=== PATIENT | female | born 1950 | race African-American/Black ===

== ENCOUNTER 2017-03-20 07:37 | Inpatient (IN) | payer OTHER ==
[~2017-03-20] VITALS: Ht 167.6 cm; Wt 117.0 kg
[2017-03-20] VITALS (7 sets, daily range): BP systolic 113–164; BP diastolic 57–138
--- NOTE | 2017-03-20 07:52 | Emergency Room Report ---
History of Present Illness General Chief Complaint: Pain Source: Patient Present Illness HPI 67 yo F. with pmhx of HTN, p/w left arm pain for many months. Patient is alert awake oriented x3 however slightly poor historian. Patient states that she gets left arm pain every single day, starts at any time. Localized to left arm and sometimes right arm, no radiation to back, sharp in nature, gradual in onset , lasts several hours, patient states that she woke up with left arm pain this morning, which has been constant. 10 out of 10 pain. Denies trauma. Occurs at rest. Denies SOB. Denies palpitations, diaphoresis, n/v. Denies fever, chills, cough, abd pain. Patient has never had a stress test. Patient has never had a cardiac catheterization. Denies smoking, no family history of cardiac disease at a young age. Denies any alcohol use or any drug use. Allergies: Coded Allergies: No Known Allergies (Unverified , 03/20/17) Patient History Past Medical History: see triage record Past Surgical History: none Pertinent Family History: none Reviewed Nursing Documentation: PMH: Agreed, PSxH: Agreed Nursing Documentation-PMH Past Medical History: No History, Except For Hx Hypertension: Yes History Of Psychiatric Problem: Yes - ANXIETY Review of Systems All Other Systems: negative except mentioned in HPI Physical Exam Vital Signs Date Time Temp Pulse Resp B/P (MAP) Pulse Ox O2 Delivery O2 Flow Rate FiO2 03/20/17 07:29 98.1 135 18 136/110 98 Room Air Sp02 EP Interpretation: reviewed, normal General Appearance: alert, GCS 15, non-toxic, other - Middle aged female, appears diaphoretic however does not appear to be in pain, conversing appropriately at bedside Head: normocephalic, atraumatic Eyes: bilateral eye normal inspection, bilateral eye PERRL, bilateral eye EOMI ENT: normal ENT inspection, normal pharynx, normal voice, moist mucus membranes Neck: normal inspection, full range of motion, supple Respiratory: normal inspection, lungs clear, normal breath sounds, no respiratory distress, no retraction, no wheezing, speaking full sentences, chest symmetrical Cardiovascular #1: normal inspection, no edema, normal capillary refill, tachycardia Cardiovascular #2: 2+ radial (R), 2+ radial (L) Gastrointestinal: normal inspection, non tender, soft, non-distended, no guarding Musculoskeletal: normal inspection, back normal, normal range of motion, non- tender, other - FROM of all extremities including upper ext, no warmth/erythema of joints, no gross bony deformities. nontender Neurologic: normal inspection, alert, oriented x3, responsive, motor strength/ tone normal, sensory intact, normal gait, speech normal Psychiatric: normal inspection, other - Slightly poor historian Skin: normal inspection, normal color, no rash, warm/dry, well hydrated, normal turgor Medical Decision Making Diagnostic Impression: Primary Impression: Acute coronary syndrome Additional Impression: Left arm pain ER Course 67 yo F. with pmhx of hypertension p/w left arm pain/chest pain DDX: ACS vs. CHF vs. pneumonia vs. gastritis/GERD vs. pneumothorax Plan: IV access, obtain labs including troponin, EKG, CXR ASA Anticipate admission ER course: sinus tach, afebrile rectally Patient was treated with ASA. Labs- Troponin neg pt agitated/screaming in pain, ativan/morphine given remained on monitor tachycardic however bp normal. Disposition: Patient requires admission for chest pain to tele floor. Patient requires admission for further workup, serial troponin, and possible stress test/cath inpatient. Patient was signed out to Dr Mock, who has accepted patient for admission. Please note that this Emergency Department Report was dictated using [employer] application developer technology software, occasionally this can lead to erroneous entry secondary to interpretation by the dictation equipment. Laboratory Tests Test 03/20/17 08:19 White Blood Count 9.5 K/UL (4.8-10.8) Red Blood Count 5.05 M/UL (4.20-5.40) Hemoglobin 15.0 G/DL (12.0-16.0) Hematocrit 46.8 % (37.0-47.0) Mean Corpuscular Volume 93 FL (80-99) Mean Corpuscular Hemoglobin 29.6 PG (27.0-31.0) Mean Corpuscular Hemoglobin Concent 32.0 G/DL (32.0-36.0) Red Cell Distribution Width 15.9 % (11.6-14.8) H Platelet Count 393 K/UL (150-450) Mean Platelet Volume 5.9 FL (6.5-10.1) L Neutrophils (%) (Auto) 67.2 % (45.0-75.0) Lymphocytes (%) (Auto) 22.0 % (20.0-45.0) Monocytes (%) (Auto) 5.2 % (1.0-10.0) Eosinophils (%) (Auto) 4.9 % (0.0-3.0) H Basophils (%) (Auto) 0.7 % (0.0-2.0) Sodium Level 142 mEQ/L (135-145) Potassium Level 3.9 mEQ/L (3.4-4.9) Chloride Level 102 mEQ/L (98-107) Carbon Dioxide Level 26 mEQ/L (20-30) Anion Gap 14 (5-15) Blood Urea Nitrogen 18 mg/dL (7-23) Creatinine 1.0 mg/dL (0.5-0.9) H Estimate Glomerular Filtration Rate > 60 mL/min (>60) Glucose Level 155 mg/dL (74-106) H Calcium Level 9.0 mg/dL (8.6-10.2) Total Bilirubin 0.3 mg/dL (0.0-1.2) Aspartate Amino Transferase (AST) 16 U/L (5-40) Alanine Aminotransferase (ALT) 11 U/L (3-33) Alkaline Phosphatase 125 U/L (35-104) H Total Creatine Kinase 68 U/L (26-140) Creatine Kinase MB 1.8 ng/mL (< 3.8) Creatine Kinase MB Relative Index 2.6 Troponin I < 0.30 ng/mL (<=0.30) Pro-B-Type Natriuretic Peptide 85 pg/mL (0-125) Total Protein 7.9 g/dL (6.6-8.7) Albumin 3.4 g/dL (3.5-5.2) L Globulin 4.5 g/dL Albumin/Globulin Ratio 0.7 (1.0-2.7) L Thyroid Stimulating Hormone (TSH) 2.640 uIU/mL (0.300-4.500) Serum Alcohol Pending EKG Diagnostic Results Rate: tachycardiac Rhythm: NSR ST Segments: other - Q waves III and aVF ASA given to the pt in ED: Yes Rhythm Strip Diag. Results EP Interpretation: yes Rate: 130 Rhythm: NSR, no PVC's, no ectopy Chest X-Ray Diagnostic Results Chest X-Ray Diagnostic Results : Chest X-Ray Ordered: Yes # of Views/Limited/Complete: 1 View Indication: Chest Pain EP Interpretation: Yes Interpretation: other - cardiomegaly, cannot fully eval L lung base 2/2 to poor insp effort Impression: Other - cardiomegaly Electronically Signed by: Electronically signed by Adelina Adan MD Last Vital Signs Date Time Temp Pulse Resp B/P (MAP) Pulse Ox O2 Delivery O2 Flow Rate FiO2 03/20/17 07:29 98.1 135 18 136/110 98 Room Air Disposition: ADMITTED INPATIENT Condition: Serious Adelina Adan M.D. Mar 20, 2017 07:52
[2017-03-20] MEDS ORDERED: LORazepam Inj 2mg/ml 1ml IV ONE (08:30)
[2017-03-20 08:39] LABS: BASOPHILS % (AUTO) 0.7 % (0.0-2.0); EOSINOPHILS % (AUTO) 4.9 % (0.0-3.0); MEAN CORPUSCULAR HEMOGLOBIN 29.6 PG (27.0-31.0); MEAN CORPUSCULAR VOLUME 93 FL (80-99); MEAN PLATELET VOLUME 5.9 FL (6.5-10.1); MONOCYTES % (AUTO) 5.2 % (1.0-10.0); NEUTROPHILS % (AUTO) 67.2 % (45.0-75.0); PLATELET COUNT 393 K/UL (150-450); RED BLOOD COUNT 5.05 M/UL (4.20-5.40); RED CELL DISTRIBUTION WIDTH 15.9 % (11.6-14.8); WHITE BLOOD COUNT 9.5 K/UL (4.8-10.8)
[2017-03-20] MEDS ORDERED: Morphine Sulfate 4mg/ml Inj IVP ONE (08:45)
[2017-03-20 08:52] LABS: ALANINE AMINOTRANSFERASE 11 U/L (3-33); ALBUMIN/GLOBULIN RATIO 0.7 (1.0-2.7); ANION GAP 14 (5-15); ASPARTATE AMINO TRANSFERASE 16 U/L (5-40); CARBON DIOXIDE 26 mEQ/L (20-30); CHLORIDE 102 mEQ/L (98-107); GLOMERULAR FILTRATION RATE > 60 mL/min (>60); HEMOLYSIS 2; POTASSIUM 3.9 mEQ/L (3.4-4.9); SODIUM 142 mEQ/L (135-145); TOTAL PROTEIN 7.9 g/dL (6.6-8.7); TROPONIN I < 0.30 ng/mL (<=0.30)
[2017-03-20] MEDS ORDERED: LEXAPRO10 MG ORAL (09:00)
[2017-03-20] MEDS ORDERED: NAPROXEN500 M2 ORAL (09:00)
[2017-03-20] MEDS ORDERED: TRAZODONE HCL50 MG ORAL (09:00)
[2017-03-20] MEDS ORDERED: DIOVAN160 MG ORAL (09:00)
[2017-03-20] MEDS ORDERED: HYDROCHLOROTHIA50 MG ORAL (09:00)
[2017-03-20 09:04] LABS: CKMB 1.8 ng/mL (< 3.8)
[2017-03-20] MEDS ORDERED: Miralax 17gm pkt ORAL PRN (11:30)
[2017-03-20] MEDS ORDERED: Enalaprilat 2.5mg/2ml Inj IV PRN (11:30)
[2017-03-20] MEDS ORDERED: Ketorolac 30mg Inj IV PRN (11:30)
[2017-03-20] MEDS ORDERED: DuoNeb 0.5-3(2.5)mg/3ml neb HHN PRN (11:30)
[2017-03-20] MEDS ORDERED: Nitroglycerin Subl 0.4mg tab (Bottle Of 25) SL PRN (11:30)
[2017-03-20] MEDS ORDERED: Diltiazem 25mg/5ml IV PRN (11:30)
--- NOTE | 2017-03-20 11:32 | Diagnostic Imaging Report ---
Indication: PAIN Technique: One view of the chest Comparison: none Findings: Lungs and pleural spaces are clear. The heart is enlarged. Aorta is tortuous and ectatic Impression: No acute process This agrees with the preliminary interpretation provided by the emergency room physician
[2017-03-20] MEDS: Morphine Sulfate 2mg/ml Inj IVP PRN ×2 (11:54→17:42)
--- NOTE | 2017-03-20 13:05 | History and Physical ---
History of Present Illness General Date patient seen: Mar 20, 2017 Reason for Hospitalization: Pain Present Illness HPI 67 year old female with pmhx of HTN presented to [facility] [place] with CC of left arm pain , sharp in nature, gradual in onset, lasts several hours, patient states that she woke up with left arm pain this morning, which has been constant. 10 out of 10 pain. Pt is a poor historian with morbid obesity and lack of activity and very high risk for CAD. therefore she is admitted to rule out ACS. Allergies: Coded Allergies: No Known Allergies (Unverified , 03/20/17) Medication History Scheduled Escitalopram Oxalate* (Lexapro*), 5 MG ORAL DAILY, (Reported) Hydrochlorothiazide* (Hydrochlorothiazide*), 50 MG ORAL DAILY, (Reported) Valsartan (Diovan), 160 MG ORAL DAILY, (Reported) Scheduled PRN Naproxen* (Naproxen*), 500 MG ORAL TWICE A DAY PRN for For Pain, (Reported) Trazodone Hcl* (Desyrel*), 50 MG ORAL BEDTIME PRN for Insomnia, (Reported) Patient History Healthcare decision maker Resuscitation status Advanced Directive on File Past Medical/Surgical History Past Medical/Surgical History: (1) HTN (hypertension) Review of Systems Constitutional: Reports: no symptoms Eye: Reports: no symptoms ENT: Reports: no symptoms Physical Exam General Appearance: WD/WN Lines, tubes and drains: peripheral, central line HEENT: normocephalic, anicteric Neck: non-tender, normal alignment Respiratory/Chest: chest wall non-tender Breasts: no masses Cardiovascular/Chest: normal peripheral pulses Abdomen: normal bowel sounds, non tender Genitourinary/Rectal: normal genital exam Last 24 Hour Vital Signs Date Time Temp Pulse Resp B/P (MAP) Pulse Ox O2 Delivery O2 Flow Rate FiO2 03/20/17 12:48 139 114/74 03/20/17 12:00 98.4 78 20 146/57 95 Room Air 03/20/17 10:50 141 22 115/74 95 Room Air 03/20/17 10:40 98.5 142 24 115/74 95 Room Air 03/20/17 09:40 142 24 120/80 96 Room Air 03/20/17 08:40 145 21 124/104 97 Room Air 03/20/17 07:40 98.5 142 19 164/138 96 Room Air 03/20/17 07:29 98.1 135 18 136/110 98 Room Air Intake and Output 03/20/17 03/21/17 19:00 07:00 Intake Total 100 ml Balance 100 ml Intake IV Total 100 ml Laboratory Tests Test 03/20/17 08:19 White Blood Count 9.5 K/UL (4.8-10.8) Red Blood Count 5.05 M/UL (4.20-5.40) Hemoglobin 15.0 G/DL (12.0-16.0) Hematocrit 46.8 % (37.0-47.0) Mean Corpuscular Volume 93 FL (80-99) Mean Corpuscular Hemoglobin 29.6 PG (27.0-31.0) Mean Corpuscular Hemoglobin Concent 32.0 G/DL (32.0-36.0) Red Cell Distribution Width 15.9 % (11.6-14.8) H Platelet Count 393 K/UL (150-450) Mean Platelet Volume 5.9 FL (6.5-10.1) L Neutrophils (%) (Auto) 67.2 % (45.0-75.0) Lymphocytes (%) (Auto) 22.0 % (20.0-45.0) Monocytes (%) (Auto) 5.2 % (1.0-10.0) Eosinophils (%) (Auto) 4.9 % (0.0-3.0) H Basophils (%) (Auto) 0.7 % (0.0-2.0) Sodium Level 142 mEQ/L (135-145) Potassium Level 3.9 mEQ/L (3.4-4.9) Chloride Level 102 mEQ/L (98-107) Carbon Dioxide Level 26 mEQ/L (20-30) Anion Gap 14 (5-15) Blood Urea Nitrogen 18 mg/dL (7-23) Creatinine 1.0 mg/dL (0.5-0.9) H Estimat Glomerular Filtration Rate > 60 mL/min (>60) Glucose Level 155 mg/dL (74-106) H Calcium Level 9.0 mg/dL (8.6-10.2) Total Bilirubin 0.3 mg/dL (0.0-1.2) Aspartate Amino Transf (AST/SGOT) 16 U/L (5-40) Alanine Aminotransferase (ALT/SGPT) 11 U/L (3-33) Alkaline Phosphatase 125 U/L (35-104) H Total Creatine Kinase 68 U/L (26-140) Creatine Kinase MB 1.8 ng/mL (< 3.8) Creatine Kinase MB Relative Index 2.6 Troponin I < 0.30 ng/mL (<=0.30) Pro-B-Type Natriuretic Peptide 85 pg/mL (0-125) Total Protein 7.9 g/dL (6.6-8.7) Albumin 3.4 g/dL (3.5-5.2) L Globulin 4.5 g/dL Albumin/Globulin Ratio 0.7 (1.0-2.7) L Thyroid Stimulating Hormone (TSH) 2.640 uIU/mL (0.300-4.500) Serum Alcohol < 10 mg/dL Height (Feet): 5 Height (Inches): 6.00 Weight (Pounds): 258 Medications Current Medications Medications (Trade) Dose Ordered Sig/Paula Route PRN Reason Start Time Stop Time Status Last Admin Dose Admin Acetaminophen (Tylenol) 650 mg Q4H PRN ORAL FEVER and temp > 100.5 03/20/17 11:30 04/19/17 11:29 Albuterol/ Ipratropium (DuoNeb 0.5-3(2.5)mg/3ml) 3 ml Q4H PRN HHN Shortness of Breath 03/20/17 11:30 03/25/17 11:29 Aspirin (ASA) 162 mg DAILY ORAL 03/21/17 09:00 04/20/17 08:59 Diltiazem HCl (Cardizem) 10 mg Q1H PRN IV heart rate more than 120, 03/20/17 11:30 04/19/17 11:29 03/20/17 12:48 Enalaprilat (Vasotec) 2.5 mg Q6H PRN IV sbp more than 160 03/20/17 11:30 04/19/17 11:29 Escitalopram Oxalate (Lexapro) 5 mg DAILY ORAL 03/21/17 09:00 04/20/17 08:59 Heparin Sodium (Porcine) (Heparin 5000 units/ml) 5,000 units EVERY 12 HOURS SUBQ 03/20/17 21:00 04/19/17 20:59 Ketorolac Tromethamine (Toradol 30mg) 30 mg Q6H PRN IV moderate pain ( 4-6) 03/20/17 11:30 03/25/17 11:29 Morphine Sulfate (Morphine Sulfate) 2 mg Q4H PRN IVP severe Pain (Pain Scale 7-10) 03/20/17 11:30 03/27/17 11:29 03/20/17 11:54 Nitroglycerin (Ntg) 0.4 mg Q5M PRN SL Prn Chest Pain 03/20/17 11:30 04/19/17 11:29 Ondansetron HCl (Zofran) 4 mg Q6H PRN IVP Nausea & Vomiting 03/20/17 11:30 04/19/17 11:29 Pantoprazole (Protonix) 40 mg DAILY ORAL 03/21/17 09:00 04/20/17 08:59 Polyethylene Glycol (Miralax) 17 gm DAILYPRN PRN ORAL Constipation 03/20/17 11:30 04/19/17 11:29 Temazepam (Restoril) 15 mg HSPRN PRN ORAL Insomnia 03/20/17 11:30 03/27/17 11:29 Trazodone HCl (Desyrel) 50 mg HSPRN PRN ORAL Insomnia 03/20/17 20:00 04/19/17 19:59 Assessment/Plan Problem List: (1) Acute coronary syndrome ICD Codes: I24.9 - Acute ischemic heart disease, unspecified SNOMED: 566192214 (2) HTN (hypertension) ICD Codes: I10 - Essential (primary) hypertension SNOMED: 18019079 (3) Chest pain ICD Codes: R07.9 - Chest pain, unspecified SNOMED: 10328202 Assessment/Plan serial ekg, troponin cardiology to see monitor bp replace Diovan by LisinoNELI Grover Mar 20, 2017 13:05
--- NOTE | 2017-03-20 14:32 | Cardiology Report ---
APPROVED REPORT EXAM: Two-dimensional and M-mode echocardiogram with Doppler and color Doppler. INDICATION LV function Technically difficult study due to very poor acoustical windows and pts body habitus. M-mode measurements of left ventricle not obtainable due to cardiac position (angle) Normal left ventricular chamber size, systolic function and wall motion to extent visualized. Left ventricular ejection fraction estimated to be 55 %. Study quality precludes accurate assessment of regional wall motion. Moderate left ventricular hypertrophy by 2-D. No evidence of pericardial effusion. All other cardiac chambers appear to be within normal limits. Focal aortic valve sclerosis with adequate cusp excursion. Thickened mitral valve leaflets with normal excursion. Mitral annulus and aortic root calcification. Pulmonic valve not well visualized. Normal tricuspid valve structure. IVC measured at 2.1 cm with physiologic collapse suggestive of increased RA pressure. A color flow and spectral Doppler study was performed and revealed: Trace mitral regurgitation. Mitral diastolic velocities suggest reduced left ventricular relaxation c/w mild LV diastolic dysfunction (Grade I). Trace tricuspid regurgitation. Tricuspid systolic velocities suggests peak right ventricular systolic pressure of 16 mmHg.
[2017-03-20 15:02] LABS: TROPONIN I < 0.30 ng/mL (<=0.30)
[2017-03-20] MEDS ORDERED: Pneumococcal Vaccine 25mcg/0.5ml IM ONE (16:00)
--- NOTE | 2017-03-20 19:56 | Cardiology Progress Note ---
Assessment/Plan Assessment/Plan [id number] doubt coronary syndrome etiology of sinus tachy not apprent ? withdraw form med vs thromboembolism no cardic causes of tachy d/c hctz use diovan adn bb to control mota rate and bp orthostatic vitals venous duplex Objective Last 24 Hour Vital Signs Date Time Temp Pulse Resp B/P (MAP) Pulse Ox O2 Delivery O2 Flow Rate FiO2 03/20/17 19:44 119 18 Room Air 03/20/17 16:00 116 03/20/17 16:00 98.6 120 20 113/77 97 Room Air 03/20/17 12:48 139 114/74 03/20/17 12:00 98.4 78 20 146/57 95 Room Air 03/20/17 12:00 139 03/20/17 10:50 141 22 115/74 95 Room Air 03/20/17 10:40 98.5 142 24 115/74 95 Room Air 03/20/17 09:40 142 24 120/80 96 Room Air 03/20/17 08:40 145 21 124/104 97 Room Air 03/20/17 07:40 98.5 142 19 164/138 96 Room Air 03/20/17 07:29 98.1 135 18 136/110 98 Room Air Intake and Output 03/20/17 03/21/17 19:00 07:00 Intake Total 600 ml Balance 600 ml Intake Oral 500 ml IV Total 100 ml Laboratory Tests Test 03/20/17 08:19 03/20/17 14:20 White Blood Count 9.5 K/UL (4.8-10.8) Red Blood Count 5.05 M/UL (4.20-5.40) Hemoglobin 15.0 G/DL (12.0-16.0) Hematocrit 46.8 % (37.0-47.0) Mean Corpuscular Volume 93 FL (80-99) Mean Corpuscular Hemoglobin 29.6 PG (27.0-31.0) Mean Corpuscular Hemoglobin Concent 32.0 G/DL (32.0-36.0) Red Cell Distribution Width 15.9 % (11.6-14.8) H Platelet Count 393 K/UL (150-450) Mean Platelet Volume 5.9 FL (6.5-10.1) L Neutrophils (%) (Auto) 67.2 % (45.0-75.0) Lymphocytes (%) (Auto) 22.0 % (20.0-45.0) Monocytes (%) (Auto) 5.2 % (1.0-10.0) Eosinophils (%) (Auto) 4.9 % (0.0-3.0) H Basophils (%) (Auto) 0.7 % (0.0-2.0) Sodium Level 142 mEQ/L (135-145) Potassium Level 3.9 mEQ/L (3.4-4.9) Chloride Level 102 mEQ/L (98-107) Carbon Dioxide Level 26 mEQ/L (20-30) Anion Gap 14 (5-15) Blood Urea Nitrogen 18 mg/dL (7-23) Creatinine 1.0 mg/dL (0.5-0.9) H Estimat Glomerular Filtration Rate > 60 mL/min (>60) Glucose Level 155 mg/dL (74-106) H Calcium Level 9.0 mg/dL (8.6-10.2) Total Bilirubin 0.3 mg/dL (0.0-1.2) Aspartate Amino Transf (AST/SGOT) 16 U/L (5-40) Alanine Aminotransferase (ALT/SGPT) 11 U/L (3-33) Alkaline Phosphatase 125 U/L (35-104) H Total Creatine Kinase 68 U/L (26-140) Creatine Kinase MB 1.8 ng/mL (< 3.8) Creatine Kinase MB Relative Index 2.6 Troponin I < 0.30 ng/mL (<=0.30) < 0.30 ng/mL (<=0.30) Pro-B-Type Natriuretic Peptide 85 pg/mL (0-125) Total Protein 7.9 g/dL (6.6-8.7) Albumin 3.4 g/dL (3.5-5.2) L Globulin 4.5 g/dL Albumin/Globulin Ratio 0.7 (1.0-2.7) L Thyroid Stimulating Hormone (TSH) 2.640 uIU/mL (0.300-4.500) Serum Alcohol < 10 mg/dL SOFI COONEY Mar 20, 2017 19:56
[2017-03-20] MEDS ORDERED: TraZODone 50mg tab ORAL PRN (20:00)
[2017-03-20] MEDS: Heparin 5000 units/ml inj SUBQ SCH (20:04)
[2017-03-20] MEDS: Metoprolol Succinate XL 25mg tab ORAL SCH (20:47)
[2017-03-21] VITALS: BP_SYST 110; BP_SYST 118; BP_SYST 122; BP_DIAS 62; BP_DIAS 71; BP_DIAS 78
[2017-03-21 04:00] VITALS: BP 115/55
[2017-03-21] MEDS: Morphine Sulfate 2mg/ml Inj IVP PRN ×3 (04:56→13:14)
[2017-03-21 08:00] VITALS: BP 133/79
[2017-03-21] MEDS: Escitalopram Oxalate 5mg tab ORAL SCH (08:29)
[2017-03-21] MEDS: Aspirin Baby 81mg ORAL SCH (08:29)
[2017-03-21] MEDS: Lisinopril 20mg tab ORAL SCH (08:30)
[2017-03-21] MEDS: Metoprolol Succinate XL 25mg tab ORAL SCH (08:31)
[2017-03-21] MEDS: Heparin 5000 units/ml inj SUBQ SCH ×2 (08:32→21:21)
[2017-03-21 09:07] LABS: EOSINOPHILS % (AUTO) 4.3 % (0.0-3.0); LYMPHOCYTES % (AUTO) 28.6 % (20.0-45.0); MEAN CORPUSCULAR VOLUME 94 FL (80-99); MEAN PLATELET VOLUME 6.3 FL (6.5-10.1); MONOCYTES % (AUTO) 4.4 % (1.0-10.0); NEUTROPHILS % (AUTO) 61.7 % (45.0-75.0); PLATELET COUNT 356 K/UL (150-450); RED BLOOD COUNT 4.71 M/UL (4.20-5.40); TROPONIN I < 0.30 ng/mL (<=0.30); WHITE BLOOD COUNT 10.8 K/UL (4.8-10.8)
[2017-03-21 09:12] LABS: INR 1.1 (0.9-1.1); PROTHROMBIN TIME 11.1 SEC (9.30-11.50)
[2017-03-21 09:48] LABS: CHOLESTEROL/HDL RATIO 4.5 (3.3-4.4); CRP QUANT 3.1 mg/dL (< 0.5)
[2017-03-21] MEDS ORDERED: LORazepam 1mg tab ORAL PRN (10:00)
[2017-03-21 12:00] VITALS: BP 131/91
--- NOTE | 2017-03-21 12:00 | Consultation ---
DATE OF CONSULTATION: 03/20/2017 CARDIOLOGY CONSULTATION REFERRING PHYSICIAN: Tere Mock M.D. REASON FOR REFERRAL: Bilateral arm pain, rule out coronary event. History Of Present Illness: This is a middle-aged female, 67 years old, who is rather a poor historian. The patient tells me she was in the hospital a few weeks ago at [facility]. Since then, she has been having some pain in both her forearms bilaterally. She really does not have any chest pain or pressure. There is no PND or orthopnea. No palpitation. No dizziness or lightheadedness. She is ambulatory to a degree with the help of a walker. She denies any prior cardiac history, although she tells me when she was at [facility] she was there for some irregular heart rate, but she denies any heart attack. She does have high blood pressure. No diabetes. No high cholesterol. No heart attack, cancer, stroke, hepatitis, tuberculosis, asthma, or emphysema. No ulcers, kidney problems, liver problems, thyroid problems, anemia, or arthritis. No blood clots. No narrowing of any vessels that she is aware of. ALLERGIES: She is not allergic to any medications. Social History: Does not smoke, never did. Does not drink, never did. Does not use any drugs. Review Of Systems: Gastrointestinal: She denies. Genitourinary: She denies. Pulmonary: She denies. Constitutional: She does admit to having some coughing and wheezing at times. Neurological: She denies. PHYSICAL EXAMINATION: General: Shows to be middle-aged female, in no respiratory distress. She is obese. NECK: Supple. No jugular venous distention. LUNGS: Clear to auscultation and percussion. Cardiac: S1 is normal. S2 is normal. Regular rate and rhythm. No heaves, thrills, or gallops noted. Abdomen: Soft and obese. Positive bowel sounds. There is fullness in the subcutaneous tissue of the abdomen in mid area. Extremities: There is no clubbing, cyanosis, or edema. She has pneumatic compression stockings in place. Neurologic: She is awake, alert, responsive, and in no apparent respiratory distress. Laboratory and diagnostic data: Telemetry shows sinus tachycardia. The rate is all the way up to 141. Echocardiogram preliminary shows ejection fraction of 55%, technically difficult study and no significant valvular problems being noted. Diastolic relaxation of grade 1. EKG performed by the paramedics also shows heart rates . There are no ST or T-wave abnormalities on her EKGs. Her blood tests show white count 9.5, hemoglobin 16, and platelet count 393,000. Sodium is 142, potassium 3.9, chloride 102, bicarbonate 26, BUN of 18, creatinine 1.0, and glucose of 155. Alkaline phosphate 125. Troponin on two separate occasions is negative. ProBNP is only 85. Albumin of 3.4. TSH of 2.6. Toxicology screen, alcohol less than 10. Chest x-ray was performed in the emergency room and it shows no acute processes and echocardiogram finalized basically ejection fraction of 55%. The patient's vital signs, blood pressure has been anywhere between 113/77 to 164/138, which is probably incorrect. ASSESSMENT AND PLAN: 1. Sinus tachycardia. 2. Bilateral forearm pain. 3. Obesity. 4. Anxiety. 5. Hypertension. Dr. Mock, this patient was seen in cardiac consultation. The etiology of the patient's sinus tachycardia is not apparent as of yet. I am not sure if she is still withdrawing from any medications that may be one of the differential diagnosis. She is on Lexapro at home. She is on hydrochlorothiazide at home as well as Naprosyn, trazodone, and Diovan. Her usual medications will be continued, however, her hydrochlorothiazide should probably be adjusted downward. She may do better with Diovan and monitor whether her tachycardias may be related to volume. Her thyroid stimulating hormone is negative and there are no other significant etiologies for her sinus tachycardia apparent. The venous duplex study will be ordered to complete her workup, although she does not appear to be short of breath to suggest pulmonary embolism, which may also be the diagnosis, although less likely in light of the fact that she lacks any symptoms in that regard. Josh Suh M.D. DR: Shanti JOB#: [id number] CC:
--- NOTE | 2017-03-21 12:12 | Pulmonology Progress Note ---
Assessment/Plan Problems: (1) Acute coronary syndrome (2) HTN (hypertension) (3) Chest pain (4) Left arm pain Assessment/Plan cardio note reviewed pain management/ neuro/psych called add methadone for pain control Subjective ROS Limited/Unobtainable: No Interval Events: still complaing of pain in both arms Allergies: Coded Allergies: No Known Allergies (Unverified , 03/20/17) Objective Last 24 Hour Vital Signs Date Time Temp Pulse Resp B/P (MAP) Pulse Ox O2 Delivery O2 Flow Rate FiO2 03/21/17 08:50 134 139 142 03/21/17 08:31 134 133/79 03/21/17 08:30 133/79 03/21/17 08:00 97.8 134 28 133/79 96 Room Air 03/21/17 07:48 112 18 Room Air 03/21/17 05:26 98.4 03/21/17 05:14 98.4 03/21/17 04:00 109 03/21/17 04:00 97.3 110 18 115/55 99 Room Air 03/21/17 04:00 74 87 87 03/21/17 00:00 110 110/62 03/21/17 00:00 127 03/21/17 00:00 97.8 108 22 118/78 99 Room Air 03/21/17 00:00 116 122/71 03/20/17 20:47 119 126/83 03/20/17 20:00 119 03/20/17 20:00 97.7 119 20 126/83 98 Room Air 03/20/17 19:44 119 18 Room Air 03/20/17 16:00 116 03/20/17 16:00 98.6 120 20 113/77 97 Room Air 03/20/17 12:48 139 114/74 General Appearance: WD/WN HEENT: normocephalic, atraumatic Respiratory/Chest: chest wall non-tender, lungs clear Breasts: no masses Cardiovascular: normal peripheral pulses Abdomen: normal bowel sounds, no organomegaly Genitourinary: normal external genitalia Extremities: no cyanosis Skin: no rash Laboratory Tests 03/20/17 14:20: Troponin I < 0.30 03/21/17 08:05: Troponin I < 0.30, White Blood Count 10.8, Red Blood Count 4.71, Hemoglobin 14.2 , Hematocrit 44.2, Mean Corpuscular Volume 94, Mean Corpuscular Hemoglobin 30.0 , Mean Corpuscular Hemoglobin Concent 32.0, Red Cell Distribution Width 16.0H, Platelet Count 356, Mean Platelet Volume 6.3L, Neutrophils (%) (Auto) 61.7, Lymphocytes (%) (Auto) 28.6, Monocytes (%) (Auto) 4.4, Eosinophils (%) (Auto) 4.3H, Basophils (%) (Auto) 1.0, Prothrombin Time 11.1, Prothromb Time International Ratio 1.1, Activated Partial Thromboplast Time 26, C-Reactive Protein, Quantitative 3.1H, Triglycerides Level 114, Cholesterol Level 220H, LDL Cholesterol 148H, HDL Cholesterol 49, Cholesterol/HDL Ratio 4.5H Current Medications Medications (Trade) Dose Ordered Sig/Paula Route PRN Reason Start Time Stop Time Status Last Admin Dose Admin Acetaminophen (Tylenol) 650 mg Q4H PRN ORAL FEVER and temp > 100.5 03/20/17 11:30 04/19/17 11:29 03/21/17 04:15 Albuterol/ Ipratropium (DuoNeb 0.5-3(2.5)mg/3ml) 3 ml Q4H PRN HHN Shortness of Breath 03/20/17 11:30 03/25/17 11:29 Aspirin (ASA) 162 mg DAILY ORAL 03/21/17 09:00 04/20/17 08:59 03/21/17 08:29 Diltiazem HCl (Cardizem) 10 mg Q1H PRN IV heart rate more than 120, 03/20/17 11:30 04/19/17 11:29 03/20/17 12:48 Enalaprilat (Vasotec) 2.5 mg Q6H PRN IV sbp more than 160 03/20/17 11:30 04/19/17 11:29 Escitalopram Oxalate (Lexapro) 5 mg DAILY ORAL 03/21/17 09:00 04/20/17 08:59 03/21/17 08:29 Heparin Sodium (Porcine) (Heparin 5000 units/ml) 5,000 units EVERY 12 HOURS SUBQ 03/20/17 21:00 04/19/17 20:59 03/21/17 08:32 Ketorolac Tromethamine (Toradol 30mg) 30 mg Q6H PRN IV moderate pain ( 4-6) 03/20/17 11:30 03/25/17 11:29 Lisinopril (Prinivil) 40 mg DAILY ORAL 03/21/17 09:00 04/20/17 08:59 03/21/17 08:30 Lorazepam (Ativan) 1 mg Q4HR PRN ORAL For Anxiety 03/21/17 10:00 03/28/17 09:59 03/21/17 10:03 Methadone HCl (Methadone HCl) 10 mg Q12HR ORAL 03/21/17 21:00 03/28/17 20:59 Metoprolol Succinate (Toprol XL) 25 mg DAILY ORAL 03/20/17 20:30 04/19/17 20:29 03/21/17 08:31 Morphine Sulfate (Morphine Sulfate) 2 mg Q4H PRN IVP severe Pain (Pain Scale 7-10) 03/20/17 11:30 03/27/17 11:29 03/21/17 09:00 Nitroglycerin (Ntg) 0.4 mg Q5M PRN SL Prn Chest Pain 03/20/17 11:30 04/19/17 11:29 Ondansetron HCl (Zofran) 4 mg Q6H PRN IVP Nausea & Vomiting 03/20/17 11:30 04/19/17 11:29 Pantoprazole (Protonix) 40 mg DAILY ORAL 03/21/17 09:00 04/20/17 08:59 03/21/17 08:30 Polyethylene Glycol (Miralax) 17 gm DAILYPRN PRN ORAL Constipation 03/20/17 11:30 04/19/17 11:29 Temazepam (Restoril) 15 mg HSPRN PRN ORAL Insomnia 03/20/17 11:30 03/27/17 11:29 Trazodone HCl (Desyrel) 50 mg HSPRN PRN ORAL Insomnia 03/20/17 20:00 04/19/17 19:59 NELI ELLIS Mar 21, 2017 12:12
--- NOTE | 2017-03-21 12:44 | Neurology Progress Note ---
Interim History Interim History ROS Limited/Unobtainable: No Objective Physical Exam Last Vital Signs Date Time Temp Pulse Resp B/P (MAP) Pulse Ox O2 Delivery O2 Flow Rate FiO2 03/21/17 12:00 98.4 104 20 131/91 95 Room Air Laboratory Tests Test 03/20/17 14:20 03/21/17 08:05 Troponin I < 0.30 ng/mL (<=0.30) < 0.30 ng/mL (<=0.30) White Blood Count 10.8 K/UL (4.8-10.8) Red Blood Count 4.71 M/UL (4.20-5.40) Hemoglobin 14.2 G/DL (12.0-16.0) Hematocrit 44.2 % (37.0-47.0) Mean Corpuscular Volume 94 FL (80-99) Mean Corpuscular Hemoglobin 30.0 PG (27.0-31.0) Mean Corpuscular Hemoglobin Concent 32.0 G/DL (32.0-36.0) Red Cell Distribution Width 16.0 % (11.6-14.8) H Platelet Count 356 K/UL (150-450) Mean Platelet Volume 6.3 FL (6.5-10.1) L Neutrophils (%) (Auto) 61.7 % (45.0-75.0) Lymphocytes (%) (Auto) 28.6 % (20.0-45.0) Monocytes (%) (Auto) 4.4 % (1.0-10.0) Eosinophils (%) (Auto) 4.3 % (0.0-3.0) H Basophils (%) (Auto) 1.0 % (0.0-2.0) Prothrombin Time 11.1 SEC (9.30-11.50) Prothromb Time International Ratio 1.1 (0.9-1.1) Activated Partial Thromboplast Time 26 SEC (23-33) C-Reactive Protein, Quantitative 3.1 mg/dL (< 0.5) H Triglycerides Level 114 mg/dL (< 150) Cholesterol Level 220 mg/dL (< 200) H LDL Cholesterol 148 mg/dL (60-99) H HDL Cholesterol 49 mg/dL (> 60) Cholesterol/HDL Ratio 4.5 (3.3-4.4) H Impression/Recommendations Problems: (1) intractable pain BUE more Left. (2) Anxiety (3) HTN (hypertension) Status: unchanged Recommendations # [id number] WILFRED EDWARDS Mar 21, 2017 12:44
[2017-03-21 15:47] VITALS: BP 139/75
--- NOTE | 2017-03-21 16:28 | Diagnostic Imaging Report ---
Indication: Neck Pain Findings: 3 views of the cervical spine were obtained. The study is nondiagnostic. The cervical spine is not adequately visualized on most of the images. The open-mouth view shows good alignment of C1-2. The dens appears intact. The bones are osteopenic. Impression: Nondiagnostic examination.
[2017-03-21 20:00] VITALS: BP 132/68
--- NOTE | 2017-03-21 20:19 | Cardiology Progress Note ---
Assessment/Plan Assessment/Plan 1. Sinus tachycardia. 2. Bilateral forearm pain. 3. Obesity. 4. Anxiety. 5. Hypertension. all trop neg tle sinus sinus tachy venosu duples of ARMS neg tsh norl not anemic i am unalbe to find orhtstatic vitsl result tele reviewed agrew with psych evla bp are fine increae bb Subjective Cardiovascular: Denies: chest pain, lightheadedness, palpitations Gastrointestinal/Abdominal: Denies: abdominal pain Genitourinary: Denies: burning Subjective still with arm pain Objective Last 24 Hour Vital Signs Date Time Temp Pulse Resp B/P (MAP) Pulse Ox O2 Delivery O2 Flow Rate FiO2 03/21/17 19:26 101 18 Room Air 03/21/17 17:00 131 136 141 03/21/17 16:00 98 03/21/17 15:47 98.0 98 19 139/75 95 Room Air 03/21/17 12:00 125 03/21/17 12:00 98.4 104 20 131/91 95 Room Air 03/21/17 08:50 134 139 142 03/21/17 08:31 134 133/79 03/21/17 08:30 133/79 03/21/17 08:00 97.8 134 28 133/79 96 Room Air 03/21/17 08:00 131 03/21/17 07:48 112 18 Room Air 03/21/17 05:26 98.4 03/21/17 05:14 98.4 03/21/17 04:00 109 03/21/17 04:00 97.3 110 18 115/55 99 Room Air 03/21/17 04:00 74 87 87 03/21/17 00:00 110 110/62 03/21/17 00:00 127 03/21/17 00:00 97.8 108 22 118/78 99 Room Air 03/21/17 00:00 116 122/71 03/20/17 20:47 119 126/83 General Appearance: alert Neck: supple Cardiovascular: normal rate, regular rhythm, tachycardia Respiratory/Chest: lungs clear, normal breath sounds Abdomen: normal bowel sounds, non tender, soft Extremities: no swelling Intake and Output 03/21/17 03/22/17 19:00 07:00 Intake Total 1200 ml Balance 1200 ml Intake Oral 1200 ml # Voids 2 Laboratory Tests Test 03/21/17 08:05 White Blood Count 10.8 K/UL (4.8-10.8) Red Blood Count 4.71 M/UL (4.20-5.40) Hemoglobin 14.2 G/DL (12.0-16.0) Hematocrit 44.2 % (37.0-47.0) Mean Corpuscular Volume 94 FL (80-99) Mean Corpuscular Hemoglobin 30.0 PG (27.0-31.0) Mean Corpuscular Hemoglobin Concent 32.0 G/DL (32.0-36.0) Red Cell Distribution Width 16.0 % (11.6-14.8) H Platelet Count 356 K/UL (150-450) Mean Platelet Volume 6.3 FL (6.5-10.1) L Neutrophils (%) (Auto) 61.7 % (45.0-75.0) Lymphocytes (%) (Auto) 28.6 % (20.0-45.0) Monocytes (%) (Auto) 4.4 % (1.0-10.0) Eosinophils (%) (Auto) 4.3 % (0.0-3.0) H Basophils (%) (Auto) 1.0 % (0.0-2.0) Prothrombin Time 11.1 SEC (9.30-11.50) Prothromb Time International Ratio 1.1 (0.9-1.1) Activated Partial Thromboplast Time 26 SEC (23-33) Troponin I < 0.30 ng/mL (<=0.30) C-Reactive Protein, Quantitative 3.1 mg/dL (< 0.5) H Triglycerides Level 114 mg/dL (< 150) Cholesterol Level 220 mg/dL (< 200) H LDL Cholesterol 148 mg/dL (60-99) H HDL Cholesterol 49 mg/dL (> 60) Cholesterol/HDL Ratio 4.5 (3.3-4.4) H SOFI COONEY Mar 21, 2017 20:19
[2017-03-22 00:04] VITALS: BP 133/66
--- NOTE | 2017-03-22 00:45 | Consultation ---
DATE OF CONSULTATION: 03/21/2017 NEUROLOGICAL CONSULTATION REQUESTING PHYSICIAN: Tere Mock M.D. History Of Present Illness: This is a 67-year-old female, seen in neurological consultation to evaluate new onset of persistent intractable pain in both upper extremity, more on the left. The patient informed me that on 03/06/2017 she was discharged from outside hospital for evaluation of sinus tachycardia, following day she started to develop persistent sharp pains in her both upper extremity, but predominantly on the left side. This remained unchanged since then. She was using Tylenol, felt no improvement. She was admitted to this hospital with the pain, in her opinion, 04/16. The patient was agitated and screaming, being in pain and given Ativan and morphine. EKG, normal sinus tachycardia. Vital signs stable. Blood pressure 136/110, afebrile, heart rate of 135. Her initial diagnostic studies also included chest x-ray revealing no acute process. Her 2D echocardiogram, ejection fraction 55%. No mural thrombi noted. Lab work included normal CBC study, coagulation panel. Chemistry panel with blood sugar 155, alkaline phosphatase 125. Normal TSH. Elevated LDL 148. Cholesterol 220. CRP of 3.1. Normal coagulation panel. Toxicology negative. Since admission until present, she continued with pain and discomfort and now requesting towards stronger medications. Past Medical History: The patient has history of hypertension and history of anxiety, recently diagnosed with sinus tachycardia. She is morbidly obese. She has significant osteoarthritis affecting her both knees as a result, she is almost bedridden, ambulating limited amount, and trying to keep at home, avoiding to get out, using walker for ambulation, assistance to get up from her bed. Medications: Treatment prior to admission included Lexapro 5 mg daily, hydrochlorothiazide, naproxen 500 mg b.i.d., trazodone 50 mg at bedtime as needed, and valsartan 160 mg daily. ALLERGIES: None reported. Social History: Single, lives alone, but has a caregiver. Denies alcohol or drug abuse. Nonsmoker. Review Of Systems: Severe pain in her both upper extremity, more on the left. Denies headache. Denies pain in her upper back, neck, and has pain in both knees affecting her ambulation. No chest pain, has evidence of palpitation. No respiratory difficulties. Denies abdominal pain, discomfort, has anxiety. PHYSICAL EXAMINATION: General: Well-developed, morbidly obese female, lying across the bed stating that she has tossed and turned due to pain. Vital Signs: Her current vital signs are stable, blood pressure 133/79 and heart rate of 124. HEENT: Head is normocephalic. No evidence of trauma. Eyes, ears, and throat are clear. Poor dentition. Neck: Supple. No meningeal signs. There is no percussion tenderness in the cervical, dorsal, and lumbar region. There is slight puffiness. Extremities: Left upper extremity, peripheral pulses 1+ symmetric. Tenderness on palpation of both knees. Peripheral pulses 1+ symmetric. Mental status: Alert and oriented x3 with no evidence of aphasia or apraxia. Poor historian, but persisting with demand of stronger medication to control her pain. Cranial Nerve II: Pupils both responding to light and accommodation. Extraocular movement intact. No nystagmus. CRANIAL NERVE V: Normal corneal responses. CRANIAL NERVE VII: No facial asymmetry. CRANIAL NERVE VIII: Grossly normal hearing. Cranial Nerves IX Through XII: Tongue is in midline. Symmetric palate elevation. Motor: Normal muscle tone in both upper and lower extremities. Deep tendon reflexes depressed biceps, triceps, brachioradialis, knee and ankle jerks. Plantar response to flexor. No pathological responses. SENSORY: Normal to pinprick and light touch. Gait: The patient was assisted to sit up. She felt uncomfortable and went back to bed, was not attempting to ambulate. IMPRESSION: 1. New onset of pain in her both upper extremity, more on the left with some swelling in the left upper extremity, rule out a cervical radiculopathy, rule out polyneuropathy. 2. Polyneuropathy with intractable pain. 3. Morbid obesity. 4. Persistent sinus tachycardia. 5. Hypertension. 6. Anxiety syndrome. RECOMMENDATION: 1. Vascular study of both upper extremity. 2. X-ray of cervical and thoracic spine. 3. Continue with pain management. 4. Aspirin 81 mg daily. 5. Ativan 0.5 mg b.i.d. 6. Neurontin 100 mg t.i.d. to be titrated. 7. Get PT/OT. We will follow with you. Thank you for allowing me to see this interesting patient in neurological consultation. [facility] Shaun Henning DR: PATSY JOB#: [id number] CC:
[2017-03-22 04:00] VITALS: BP 135/88
[2017-03-22 07:11] LABS: TROPONIN I < 0.30 ng/mL (<=0.30)
[2017-03-22 08:00] VITALS: BP 144/88
[2017-03-22] MEDS: Aspirin Baby 81mg ORAL SCH (08:42)
[2017-03-22] MEDS: Escitalopram Oxalate 5mg tab ORAL SCH (08:42)
[2017-03-22] MEDS: Lisinopril 20mg tab ORAL SCH (08:43)
[2017-03-22] MEDS: Heparin 5000 units/ml inj SUBQ SCH ×2 (08:45→21:00)
[2017-03-22] MEDS ORDERED: Metoprolol Succinate XL 50mg tab ORAL SCH (09:00)
--- NOTE | 2017-03-22 09:15 | Consultation ---
History of Present Illness General Date patient seen: Mar 22, 2017 Present Illness Allergies: Coded Allergies: No Known Allergies (Unverified , 03/20/17) Medication History Scheduled Escitalopram Oxalate* (Lexapro*), 5 MG ORAL DAILY, (Reported) Hydrochlorothiazide* (Hydrochlorothiazide*), 50 MG ORAL DAILY, (Reported) Valsartan (Diovan), 160 MG ORAL DAILY, (Reported) Scheduled PRN Naproxen* (Naproxen*), 500 MG ORAL TWICE A DAY PRN for For Pain, (Reported) Trazodone Hcl* (Desyrel*), 50 MG ORAL BEDTIME PRN for Insomnia, (Reported) Patient History Healthcare decision maker Resuscitation status Full Code Advanced Directive on File Physical Exam Last 24 Hour Vital Signs Date Time Temp Pulse Resp B/P (MAP) Pulse Ox O2 Delivery O2 Flow Rate FiO2 03/22/17 08:43 109 135/88 03/22/17 08:43 135/88 03/22/17 08:00 68 126 131 03/22/17 08:00 97.5 103 20 144/88 Room Air 03/22/17 07:28 109 18 Room Air 03/22/17 04:00 101 03/22/17 04:00 97.3 101 20 135/88 96 Room Air 03/22/17 01:00 101 117 03/22/17 00:04 98.0 99 20 133/66 97 Room Air 03/22/17 00:00 101 03/21/17 20:00 98.0 97 20 132/68 97 Room Air 03/21/17 20:00 122 03/21/17 19:26 101 18 Room Air 03/21/17 17:00 131 136 141 03/21/17 16:00 98 03/21/17 15:47 98.0 98 19 139/75 95 Room Air 03/21/17 12:00 125 03/21/17 12:00 98.4 104 20 131/91 95 Room Air Laboratory Tests Test 03/22/17 05:20 Troponin I < 0.30 ng/mL (<=0.30) Height (Feet): 5 Height (Inches): 6.00 Weight (Pounds): 258 Medications Current Medications Medications (Trade) Dose Ordered Sig/Paula Route PRN Reason Start Time Stop Time Status Last Admin Dose Admin Acetaminophen (Tylenol) 650 mg Q4H PRN ORAL FEVER and temp > 100.5 03/20/17 11:30 04/19/17 11:29 03/21/17 04:15 Albuterol/ Ipratropium (DuoNeb 0.5-3(2.5)mg/3ml) 3 ml Q4H PRN HHN Shortness of Breath 03/20/17 11:30 03/25/17 11:29 Aspirin (ASA) 162 mg DAILY ORAL 03/21/17 09:00 04/20/17 08:59 03/22/17 08:42 Diltiazem HCl (Cardizem) 10 mg Q1H PRN IV heart rate more than 120, 03/20/17 11:30 04/19/17 11:29 03/20/17 12:48 Enalaprilat (Vasotec) 2.5 mg Q6H PRN IV sbp more than 160 03/20/17 11:30 04/19/17 11:29 Escitalopram Oxalate (Lexapro) 5 mg DAILY ORAL 03/21/17 09:00 04/20/17 08:59 03/22/17 08:42 Gabapentin (Neurontin) 100 mg THREE TIMES A DAY ORAL 03/21/17 13:00 04/20/17 12:59 03/22/17 08:43 Heparin Sodium (Porcine) (Heparin 5000 units/ml) 5,000 units EVERY 12 HOURS SUBQ 03/20/17 21:00 04/19/17 20:59 03/22/17 08:45 Ketorolac Tromethamine (Toradol 30mg) 30 mg Q6H PRN IV moderate pain ( 4-6) 03/20/17 11:30 03/25/17 11:29 Lisinopril (Prinivil) 40 mg DAILY ORAL 03/21/17 09:00 04/20/17 08:59 03/22/17 08:43 Lorazepam (Ativan) 1 mg Q4HR PRN ORAL For Anxiety 03/21/17 10:00 03/28/17 09:59 03/21/17 10:03 Methadone HCl (Methadone HCl) 10 mg Q12HR ORAL 03/21/17 21:00 03/28/17 20:59 03/22/17 08:44 Metoprolol Succinate (Toprol XL) 50 mg DAILY ORAL 03/22/17 09:00 04/21/17 08:59 03/22/17 08:43 Morphine Sulfate (Morphine Sulfate) 2 mg Q4H PRN IVP severe Pain (Pain Scale 7-10) 03/20/17 11:30 03/27/17 11:29 03/21/17 13:14 Nitroglycerin (Ntg) 0.4 mg Q5M PRN SL Prn Chest Pain 03/20/17 11:30 04/19/17 11:29 Ondansetron HCl (Zofran) 4 mg Q6H PRN IVP Nausea & Vomiting 03/20/17 11:30 04/19/17 11:29 Pantoprazole (Protonix) 40 mg DAILY ORAL 03/21/17 09:00 04/20/17 08:59 03/22/17 08:43 Polyethylene Glycol (Miralax) 17 gm DAILYPRN PRN ORAL Constipation 03/20/17 11:30 04/19/17 11:29 Temazepam (Restoril) 15 mg HSPRN PRN ORAL Insomnia 03/20/17 11:30 03/27/17 11:29 Trazodone HCl (Desyrel) 50 mg HSPRN PRN ORAL Insomnia 03/20/17 20:00 04/19/17 19:59 Assessment/Plan Assessment/Plan (1) Cervical Radiculopathy (2) Neuropathic pain (3) Morbid obesity Seen DENIS Carrillo Mar 22, 2017 09:15
[2017-03-22] MEDS ORDERED: Hydromorphone 0.5mg/0.5ml inj IVP PRN (09:30)
[2017-03-22] MEDS ORDERED: oxyCODONE HCL/Acetaminophen 5/325mg ORAL PRN (10:00)
[2017-03-22] MEDS ORDERED: Methocarbamol 500mg tab ORAL PRN (10:00)
[2017-03-22 12:00] VITALS: BP 108/72
[2017-03-22] MEDS ORDERED: GABAPENTIN100 MG ORAL (13:09)
--- NOTE | 2017-03-22 13:14 | Pulmonology Progress Note ---
Assessment/Plan Problems: (1) Acute coronary syndrome (2) HTN (hypertension) (3) Chest pain (4) Left arm pain Assessment/Plan cardio note reviewed pain management/ neuro/psych called on Gabapentin dc home Subjective ROS Limited/Unobtainable: No Constitutional: Reports: no symptoms HEENT: Repors: no symptoms Respiratory: Reports: no symptoms Allergies: Coded Allergies: No Known Allergies (Unverified , 03/20/17) Objective Last 24 Hour Vital Signs Date Time Temp Pulse Resp B/P (MAP) Pulse Ox O2 Delivery O2 Flow Rate FiO2 03/22/17 12:40 92 03/22/17 12:00 97.9 87 20 108/72 94 Room Air 03/22/17 08:43 109 135/88 03/22/17 08:43 135/88 03/22/17 08:00 68 126 131 03/22/17 08:00 99 03/22/17 08:00 97.5 103 20 144/88 Room Air 03/22/17 07:28 109 18 Room Air 03/22/17 04:00 101 03/22/17 04:00 97.3 101 20 135/88 96 Room Air 03/22/17 01:00 101 117 03/22/17 00:04 98.0 99 20 133/66 97 Room Air 03/22/17 00:00 101 03/21/17 20:00 98.0 97 20 132/68 97 Room Air 03/21/17 20:00 122 03/21/17 19:26 101 18 Room Air 03/21/17 17:00 131 136 141 03/21/17 16:00 98 03/21/17 15:47 98.0 98 19 139/75 95 Room Air General Appearance: WD/WN HEENT: normocephalic, atraumatic Respiratory/Chest: chest wall non-tender, lungs clear Breasts: no masses Cardiovascular: normal peripheral pulses, regular rhythm Abdomen: normal bowel sounds, soft, non tender Microbiology Date/Time Source Procedure Growth Status 03/20/17 09:15 Nasal Nares MRSA Culture - Final NO METHICILLIN RESISTANT STAPH AUREUS... Complete 03/20/17 09:15 Rectal Mucosa VRE Culture - Final NO VANCOMYCIN RESISTANT ENTEROCOCCUS ... Complete Laboratory Tests 03/22/17 05:20: Troponin I < 0.30 Current Medications Medications (Trade) Dose Ordered Sig/Paula Route PRN Reason Start Time Stop Time Status Last Admin Dose Admin Acetaminophen (Tylenol) 650 mg Q4H PRN ORAL FEVER and temp > 100.5 03/20/17 11:30 04/19/17 11:29 03/21/17 04:15 Albuterol/ Ipratropium (DuoNeb 0.5-3(2.5)mg/3ml) 3 ml Q4H PRN HHN Shortness of Breath 03/20/17 11:30 03/25/17 11:29 Aspirin (ASA) 162 mg DAILY ORAL 03/21/17 09:00 04/20/17 08:59 03/22/17 08:42 Diltiazem HCl (Cardizem) 10 mg Q1H PRN IV heart rate more than 120, 03/20/17 11:30 04/19/17 11:29 03/20/17 12:48 Enalaprilat (Vasotec) 2.5 mg Q6H PRN IV sbp more than 160 03/20/17 11:30 04/19/17 11:29 Escitalopram Oxalate (Lexapro) 5 mg DAILY ORAL 03/21/17 09:00 04/20/17 08:59 03/22/17 08:42 Gabapentin (Neurontin) 100 mg THREE TIMES A DAY ORAL 03/21/17 13:00 04/20/17 12:59 03/22/17 12:27 Heparin Sodium (Porcine) (Heparin 5000 units/ml) 5,000 units EVERY 12 HOURS SUBQ 03/20/17 21:00 04/19/17 20:59 03/22/17 08:45 Hydromorphone HCl (Dilaudid) 0.5 mg Q4H PRN IVP Severe Pain (Pain Scale 7-10) 03/22/17 09:30 03/29/17 09:29 Ketorolac Tromethamine (Toradol 30mg) 30 mg Q6H PRN IV moderate pain ( 4-6) 03/20/17 11:30 03/25/17 11:29 Lisinopril (Prinivil) 40 mg DAILY ORAL 03/21/17 09:00 04/20/17 08:59 03/22/17 08:43 Lorazepam (Ativan) 1 mg Q4HR PRN ORAL For Anxiety 03/21/17 10:00 03/28/17 09:59 03/21/17 10:03 Methocarbamol (Robaxin) 500 mg Q8H PRN ORAL muscle spasm 03/22/17 10:00 04/21/17 09:59 Metoprolol Succinate (Toprol XL) 50 mg DAILY ORAL 03/22/17 09:00 04/21/17 08:59 03/22/17 08:43 Nitroglycerin (Ntg) 0.4 mg Q5M PRN SL Prn Chest Pain 03/20/17 11:30 04/19/17 11:29 Ondansetron HCl (Zofran) 4 mg Q6H PRN IVP Nausea & Vomiting 03/20/17 11:30 04/19/17 11:29 Oxycodone/ Acetaminophen (Percocet 5-325) 1 tab Q4H PRN ORAL Moderate Pain (Pain Scale 4-6) 03/22/17 10:00 03/29/17 09:59 Pantoprazole (Protonix) 40 mg ACBREAKFAST ORAL 03/23/17 06:30 04/20/17 08:59 Polyethylene Glycol (Miralax) 17 gm DAILYPRN PRN ORAL Constipation 03/20/17 11:30 04/19/17 11:29 Temazepam (Restoril) 15 mg HSPRN PRN ORAL Insomnia 03/20/17 11:30 03/27/17 11:29 Trazodone HCl (Desyrel) 50 mg HSPRN PRN ORAL Insomnia 03/20/17 20:00 04/19/17 19:59 NELI ELLIS Mar 22, 2017 13:14
[2017-03-22 15:36] VITALS: BP 130/81
--- NOTE | 2017-03-22 17:12 | Cardiology Progress Note ---
Assessment/Plan Assessment/Plan 1. Sinus tachycardia. 2. Bilateral forearm pain. 3. Obesity. 4. Anxiety. 5. Hypertension. all trop neg tle sinus sinus tachy venous duples of ARMS neg tsh normal not anemic i am unable to find orthostatic vitals result tele reviewed bp are fine on higer dose bb tlel show no sig tachy dc plans noted Subjective Cardiovascular: Denies: chest pain Respiratory: Denies: shortness of breath Gastrointestinal/Abdominal: Denies: abdominal pain Genitourinary: Denies: burning Subjective still with arm pain Objective Last 24 Hour Vital Signs Date Time Temp Pulse Resp B/P (MAP) Pulse Ox O2 Delivery O2 Flow Rate FiO2 03/22/17 15:36 96.3 84 18 130/81 96 Room Air 03/22/17 12:40 92 03/22/17 12:00 97.9 87 20 108/72 94 Room Air 03/22/17 08:43 109 135/88 03/22/17 08:43 135/88 03/22/17 08:00 68 126 131 03/22/17 08:00 99 03/22/17 08:00 97.5 103 20 144/88 Room Air 03/22/17 07:28 109 18 Room Air 03/22/17 04:00 101 03/22/17 04:00 97.3 101 20 135/88 96 Room Air 03/22/17 01:00 101 117 03/22/17 00:04 98.0 99 20 133/66 97 Room Air 03/22/17 00:00 101 03/21/17 20:00 98.0 97 20 132/68 97 Room Air 03/21/17 20:00 122 03/21/17 19:26 101 18 Room Air General Appearance: alert Neck: supple Cardiovascular: normal rate, regular rhythm Respiratory/Chest: lungs clear Abdomen: normal bowel sounds, non tender, soft Extremities: no swelling Intake and Output 03/22/17 03/23/17 19:00 07:00 Intake Total 240 ml Balance 240 ml Intake Oral 240 ml Laboratory Tests Test 03/22/17 05:20 Troponin I < 0.30 ng/mL (<=0.30) Microbiology Date/Time Source Procedure Growth Status 03/20/17 09:15 Nasal Nares MRSA Culture - Final NO METHICILLIN RESISTANT STAPH AUREUS... Complete 03/20/17 09:15 Rectal Mucosa VRE Culture - Final NO VANCOMYCIN RESISTANT ENTEROCOCCUS ... Complete SOFI COONEY Mar 22, 2017 17:12
--- NOTE | 2017-03-22 22:15 | Consultation ---
DATE OF CONSULTATION: 03/22/2017 PAIN MANAGEMENT CONSULTATION REFERRING PHYSICIAN: Tere Mock M.D. CONSULTING PHYSICIAN: Archana Newsome M.D. PHYSICIAN AUTOMOTIVE ENGINEERING TECHNICIAN: Mónica Cedeno CHIEF COMPLAINT: Bilateral upper extremity pain. History of Present Illness: The patient is a 67-year-old female, who is being seen on the telemetry floor of [facility] for initial comprehensive pain management consultation. The patient reports that she has been having bilateral upper extremity pain more so on the left than the right for the past one month. It is a constant, it is acute rating 9/10 at it worse, rating it as stabbing, sharp pain, increased with movement, and nothing has been helping to relieve the pain. The patient was admitted under the care of Dr. Mock with complaints of chest pain and bilateral upper extremity pain more so on the left than the right and had been taking Tylenol as an outpatient, was admitted, started on morphine 2 mg IV with no pain relief. Due to this, I was consulted upon by neurologist and started on Neurontin 100 mg tablet three times a day. X-ray of the cervical spine was performed showing nondiagnostic examination. The patient subsequently was started as per the surgical instrument maker on methadone 10 mg every 12 hours. I discussed the patient at this time about the methadone and this will be discontinued and we will be start the patient on as needed medications of Percocet and Dilaudid with muscle relaxer for Robaxin and order an MRI of the cervical spine to rule out any pathology causing the pain into her upper extremities. The case was discussed with the nurse as well. The patient agrees and understands and is sitting up in the chair, in no acute distress at this time. Past Medical History: Hypertension, anxiety, tachycardia, morbid obesity, and osteoarthritis. PAST SURGICAL HISTORY: Denies. Social History: Denies smoking tobacco, drinking alcohol, or drug abuse. Medications: Lexapro, hydrochlorothiazide, naproxen, trazodone, and valsartan. ALLERGIES: No known drug allergies. Review Of Systems: Denies rash, fever, chills, sweating, dizziness, drowsiness, blurred vision, sore throat, or change in weight. No shortness of breath or chest pain. No nausea, vomiting, diarrhea, or blood in the stool or urine. No bowel or bladder incontinence. No dysuria. She is complaining of bilateral upper extremity pain. PHYSICAL EXAMINATION: GENERAL: Alert, awake, and oriented x3. Vital Signs: Blood pressure 135/88, heart rate 109, oxygen saturation is 96%, respiratory rate is 20, and temperature is 98.5 degrees Fahrenheit. HEENT: PERRLA. Neck: Range of motion is decreased due to the patient's pain and condition with paracervical muscles tenderness. No adenopathy. LUNGS: Decreased breath sounds bilaterally. HEART: Regular. ABDOMEN: Obese. Back: Range of motion is decreased in flexion and extension with tenderness to paraspinal muscles. No tenderness to trapezius or rhomboid muscles. Extremities: Upper extremity range of motion is decreased due to the patient's condition. Motor is intact. No cyanosis. No clubbing. Edema noted. Sensory is intact. Reflexes are not obtainable. No adenopathy. Lower extremity motion is decreased due to the patient's condition. Motor is intact. No cyanosis. No clubbing. Edema noted in bilateral lower extremities. Sensory is intact. Reflexes are not obtainable. No adenopathy. Assessment And Plan: This is a 67-year-old female with cervical radiculopathy, neuropathic pain, and morbid obesity. The patient will be discontinued off the morphine and methadone and will be started on Percocet 5/325 mg one tablet every four hours as needed for moderate pain and Dilaudid 0.5 mg IV every four hours as needed for severe pain. Robaxin 500 mg tablet every eight hours as needed for muscle spasm. We will order an MRI of the cervical spine without contrast to rule out further pathology in the cervical spine. The patient was discussed with Dr. Newsome and Dr. Newsome concurred. We will follow the patient. Thank you very much for the courtesy of this consultation. Archana Newsome M.D. LINA Heard DR: LAXMI JOB#: [id number] CC:
--- NOTE | 2017-03-24 16:07 | Cardiology Report ---
APPROVED REPORT EKG Measurement Heart [id number] MD 128P1 [id number] Sinus tachycardia Minimal voltage criteria for LVH, may be normal variant Cannot rule out Anterolateral infarct, age undetermined Abnormal ECG
--- NOTE | 2017-03-24 23:14 | Diagnostic Imaging Report ---
APPROVED REPORT CPT Code: 46664 Present Symptoms Comments: Pain BILATERAL UPPER EXTREMITY: Imaging reveals patency of the internal jugular, subclavian, axillary and brachial veins. The cephalic and basilic veins are also patent. Doppler indicates normal spontaneous flow within these venous segments, bilaterally.
[2017-03-25] MEDS ORDERED: METOPROLOL SUCC25 MG ORAL (10:40)
[2017-03-25] MEDS ORDERED: ATORVASTATIN CA10 MG ORAL (10:40)
[2017-03-25] MEDS ORDERED: ASPIR 8181 MG ORAL (10:40)
--- NOTE | 2017-03-25 10:46 | Discharge Summary ---
Discharge Summary Hospital Course Date of Admission Mar 20, 2017 at 08:31 Date of Discharge Mar 22, 2017 at 23:43 Admitting Diagnosis CHEST PAIN HPI Renea Eli is a 67 year old female who was admitted on Mar 20, 2017 at 08:31 for Chest Pain Hospital Course DC SUMMARY #[id number] Discharge Medications New Medications: Aspirin* (Aspir 81*) 81 Mg Tablet.dr 81 MG ORAL DAILY, #30 TAB Atorvastatin Calcium* (Lipitor*) 10 Mg Tablet 10 MG ORAL BEDTIME, #30 TAB Metoprolol Succinate* (Metoprolol Succinate*) 25 Mg Tab.er.24h 25 MG ORAL DAILY, #30 TAB Gabapentin* (Gabapentin*) 100 Mg Capsule 100 MG ORAL THREE TIMES A DAY for 30 Days, CAP Continued Medications: Escitalopram Oxalate* (Lexapro*) 10 Mg Tablet 5 MG ORAL DAILY, TAB Trazodone Hcl* (Desyrel*) 50 Mg Tablet 50 MG ORAL BEDTIME PRN for Insomnia, TAB Discharge Condition Upon Discharge: stable Discharge Disposition Patient was discharged to Home (01) Discharge Diagnoses: Discharge Instructions Discharge Instructions Special Instructions I have been assigned to complete a D/C Summary on this account. I was not involved in the patient management Yusra Hassan NP (Vanchtein) Mar 25, 2017 10:46
--- NOTE | 2017-03-26 08:15 | Discharge Summary 2 SIG ---
DATE OF ADMISSION: 03/20/2017 DATE OF DISCHARGE: 03/22/2017 REASON FOR ADMISSION: 67-year-old female with a history of hypertension, morbid obesity, depression, and anxiety, presented to emergency room with a complaint of left arm pain for many months. However, this morning, she woke up with severe left arm, constant, rating 10/10 on a scale 1 to 10. Denied trauma or injury to left arm She denied shortness of breath . She admitted to some chest discomfort. She denied palpitation, diaphoresis, nausea, or vomiting. No fever, no chills, no cough, no abdominal pain. Workup in the emergency room revealed stable vital signs. Pulse oximetry was stable on room air. Chest x-ray revealed no acute cardiopulmonary pathology. However, the patient exhibited sinus tachycardia on EKG with rate of 135, no acute ischemic changes. Aspirin was given. Troponin was negative. Ativan and morphine were provided for anxiety since the patient was screaming and agitated while in ED. The patient was admitted for further management. ADMITTING DIAGNOSES: 1. Chest pain 2. Rule out acute coronary syndrome. 3. Left arm pain. 4. Morbid obesity. 5. Hypertension. 6. Depression. 7 Anxiety. HOSPITAL STAY: The patient was admitted to telemetry floor. Cardiology, Neurology, and pain specialist consults were requested. Serial troponin were negative. ECG revealed no acute ischemic changes. The patient was ruled out for acute myocardiac infarct. Echocardiogram revealed preserved ejection fraction of 55%, right ventricular systolic pressure of 16. Serum alcohol level was negative. Lipid panel revealed elevated total cholesterol -220 and elevated LDL - 148. The patient was started on low-dose statin and aspirin. Blood pressure was managed with beta-freddy, which helped with heart rate as well. Tachycardia resolved with low-dose of beta-freddy. Neurologist seen and evaluated the patient. Per neurologist, the patient had intractable bilateral upper extremities pain, left more than right. Venous Duplex bilateral upper extremities was negative for acute DVT. The patient started on Neurontin, low dose of 100 mg t.i.d.Dose to be titrated further as tolerated as an outpatient. The patient was started Ativan as needed for anxiety. The patient was working with physical and occupational therapists. Pain specialist followed the patient to optimize analgesic regimen. Cervical spine x-ray was nondiagnostic. According to pain specialist, the patient likely had cervical radiculopathy and need to follow up with the pain specialist as an outpatient for further workup. The patient was stable for discharge home. FINAL DIAGNOSES: 1. Intractable bilateral upper extremities pain. 2. Likely cervical radiculopathy. 3. Hyperlipidemia. 4. Neuropathic pain. 5. Sinus tachycardia( resolved). 6. Hypertension. 7. Morbid obesity. 8. Depression. 9. Anxiety. DISCHARGE MEDICATIONS: see medications reconciliation lsit DISCHARGE INSTRUCTIONS: Patient was discharged home. Follow up with primary medical doctor. Follow up with pain specialist. Tere Mock M.D. I have been assigned to dictate discharge summary on this account and I was not involved in the patient's management. [facility]) N.POmaira DR: Jewel JOB#: [id number] CC: KORIN
== END 2017-03-22 23:43 | disposition home or self-care (01) | DRG 74 ==
LOC: EDBD 07:37 → EMR 08:02 → 2E 08:31 → EDBEDREQ 09:21 → 2E 11:24
DX: M54.12 Radiculopathy, cervical region (principal); I24.9 Acute ischemic heart disease, unspecified; Z68.41 Body mass index [BMI] 40.0-44.9, adult; I10 Essential (primary) hypertension; R00.0 Tachycardia, unspecified; F41.9 Anxiety disorder, unspecified; E66.01 Morbid (severe) obesity due to excess calories; F32.9 Major depressive disorder, single episode, unspecified; M79.602 Pain in left arm; M79.601 Pain in right arm; E78.5 Hyperlipidemia, unspecified; G62.9 Polyneuropathy, unspecified
CPT/HCPCS: 36415; 71010; 72040; 80053; 80061; 80329; 82550; 82553; 83880; 84443; 84484; 85025; 85610; 85730; 86140; 87081; 90732; 93005; 93306; 93970; 94664; 99285